=== PATIENT | female | born 1995 | race African-American/Black ===

== ENCOUNTER 2019-12-31 00:59 | Emergency (ER) | payer OTHER ==
[2019-12-31 01:15] VITALS: BP 132/89; PULSE 87; TEMP 98.8; BMI 24.2
--- NOTE | 2019-12-31 01:25 | PDOC ---
History of Present Illness - General Chief Complaint: Injury Stated Complaint: RT ANKLE PAIN Time Seen by Provider: 12/31/19 01:09 - History of Present Illness Initial Comments: 12/31/19 01:54 This otherwise healthy 24-year-old woman presents with right ankle injury: While descending staircase at work approximately 4 hours prior to presentation, patient missed next to last step and turned right ankle. Patient subsequently fell striking the right lower leg; no head/neck impact and she denies LOC. After injury, patient had increasing pain and swelling in the area with pain particularly severe with weightbearing. No previous history of right lower leg injury. Patient describes the majority of the pain being in the lateral aspect of the right ankle. On no daily medications No known allergies Denies smoking/daily alcohol or recreational drug use Past History - Past Medical History Allergies/Adverse Reactions: Allergies Allergy/AdvReac Type Severity Reaction Status Date / Time No Known Allergies Allergy Unverified 12/31/19 01:01 Home Medications: Ambulatory Orders NK [No Known Home Medication] 12/31/19 COPD: No - Psycho Social/Smoking Cessation Hx Smoking History: Never smoked Review of Systems - Review of Systems Able to Perform ROS?: Yes Comments:: 12 point review of systems is negative except for what is noted in the history of present illness *Physical Exam - Vital Signs Last Vital Signs Temp Pulse Resp BP Pulse Ox 98.8 F 87 16 132/89 99 12/31/19 01:03 12/31/19 01:03 12/31/19 01:03 12/31/19 01:03 12/31/19 01:03 - Physical Exam GENERAL: Young adult woman, alert and oriented x3, no acute distress HEAD: Normal with no signs of trauma. EXTREMITIES: Right lower extremity: Mild edema/mild tenderness lateral malleolus of ankle; moderate edema/tenderness of foot just distal to lateral malleolus No deformity/ecchymosis noted. No ligamentous instability. No tenderness or edema of the medial aspect of the ankle Knee and lower leg proximal to the ankle nontender and nonedematous No tenderness or edema at the base of the fifth metatarsal; distal motor/sensory functioning intact Remainder of the extremity exam is normal NEUROLOGICAL: Cranial nerves II through XII grossly intact. Normal speech. No focal neurological deficits. SKIN: Warm, Dry, normal turgor, no rashes or lesions noted. ED Progress Note - Progress Note Progress Note: Right ankle x-ray performed. Preliminary interpretation by me: No evidence of fracture or dislocation Clinical presentation consistent with right ankle sprain. Amanuel wrap applied followed by ankle stirrup splint. Crutches adjusted to her height and crutch walking instruction given to the patient. Patient should elevate and ice the ankle as much as possible over the next 48 hours. Splint/Amanuel wrap should be used during the day for the next 3 days followed by splint only during the day for the next week. 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 Patient does not have an orthopedist. is on service call today. She is given referral information for him. She should see him if she has persistent pain/swelling in the right ankle for more than 7 days. Discharge - Discharge Information Problems reviewed: Yes Clinical Impression/Diagnosis: Right ankle sprain Condition: Stable Disposition: HOME - Follow up/Referral Referrals: Andrew Gann DO [Staff Physician] - - Patient Discharge Instructions Patient Printed Discharge Instructions: Ankle Sprain Additional Instructions: Ice/elevation of right ankle as much as possible over the next 48 hours Amanuel wrap/ankle splint during the day for the next 3 days After 3 days, just ankle splint during the day for 4 more days Crutches for ambulation for 2 to 3 days Ibuprofen/acetaminophen as needed for pain If you continue to have pain/swelling in ankle after 7 days, follow-up with orthopedics () - Post Discharge Activity Work/Back to School Note: Back to Work
== END 2019-12-31 02:30 | disposition home or self-care (01) ==
LOC: FER 00:59
DX: S93.401A Sprain of unspecified ligament of right ankle, initial encounter (principal); X58.XXXA Exposure to other specified factors, initial encounter; Y93.89 Activity, other specified; Y92.89 Other specified places as the place of occurrence of the external cause
CPT/HCPCS: 73610-TC-RT-FY; 99282-25